=== PATIENT | male | born 1975 | race Caucasian/White ===

== ENCOUNTER 2016-07-12 18:22 | Emergency (ER) | payer SELFPAY ==
[~2016-07-12] VITALS: Ht 180.3 cm; Wt 70.3 kg
[2016-07-12] MEDS ORDERED: IV NORMAL SALINE 1000ML BAG 1,000 ML IV SCH (18:48)
[2016-07-12 19:07] LABS: BASO # 0.1 x10^3/uL (0.0-0.2); BASO % 1 % (0-3); EOS % 1 % (0-3); HEMATOCRIT 45.6 % (39.0-53.0); HEMOGLOBIN 15.3 g/dL (13.0-17.5); LYMPH # 1.8 x10^3/uL (1.0-4.8); LYMPH % 30 % (24-48); MEAN CORPUSCULAR HEMOGLOBIN 33 pg (25-35); MEAN CORPUSCULAR HGB CONC 34 g/dL (31-37); MEAN CORPUSCULAR VOLUME 98 fL (79-100); MONO % 11 % (0-9); NEUT % 56 % (31-73); PLATELET COUNT 208 x10^3/uL (140-400); RED BLOOD COUNT 4.66 x10^6/uL (4.30-5.70); RED CELL DISTRIBUTION WIDTH 14.3 % (11.5-14.5)
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
[2016-07-12] MEDS ORDERED: IOHEXOL 300 MG/ML 75 ML VIAL IV ONE (19:15)
[2016-07-12] MEDS ORDERED: CONTRAST GIVEN MC PRN (19:15)
[2016-07-12 19:16] LABS: PROTHROMBIN TIME PATIENT 12.5 SEC (11.7-14.0)
[2016-07-12 19:26] VITALS: BP 101/65
[2016-07-12 19:28] LABS: CALCIUM 8.5 mg/dL (8.5-10.1); CREATININE 1.1 mg/dL (0.7-1.3); GFR 74.5; POTASSIUM 4.1 mmol/L (3.5-5.1)
[2016-07-12] MEDS ORDERED: ASPIRIN CHEWABLE 81 MG TABLET. PO ONE (19:30)
[2016-07-12 19:32] LABS: BILIRUBIN,URINE NEGATIVE (NEG); GLUCOSE,URINE 250 mg/dL (NEG); NITRITE,URINE NEGATIVE (NEG); PH,URINE 5.5; PROTEIN,URINE NEGATIVE (NEG-TRACE); UROBILINOGEN,URINE 0.2 mg/dL (0.2 mg/dL)
[2016-07-12 19:32] LABS: ALBUMIN 3.4 g/dL (3.4-5.0); TOTAL BILIRUBIN 0.3 mg/dL (0.2-1.0); TOTAL PROTEIN 6.9 g/dL (6.4-8.2)
[2016-07-12 19:33] LABS: CKMB MASS 2.5 ng/mL (0.0-3.6)
[2016-07-12 19:38] LABS: BARBITURATES NEG (NEG); BENZODIAZEPINES NEG (NEG); CANNABINOIDS POS (NEG); COCAINE POS (NEG); METHADONE NEG (NEG); OPIATES NEG (NEG); PHENCYCLIDINE NEG (NEG)
[2016-07-12 19:46] LABS: BACTERIA,URINE 0 /HPF (0-FEW); RBC,URINE 0 /HPF (0-2)
--- NOTE | 2016-07-12 20:45 | RAD ---
Exam performed: CT scan of the abdomen and pelvis with contrast Clinical Indication: Right upper quadrant pain 30 minutes prior to admission. Date of Service: 07/12/2016. COMPARISON: Available Technique: Contiguous helical acquisitions are obtained from the lung bases to the pelvis during intravenous administration of [75 mL of Isovue-320]. In addition oral contrast was also given. Sagittal and coronal reformatted images were obtained and reviewed. CT abdomen findings: The lung bases appear essentially clear. the visualized heart is normal. Partially calcified nodule in the left lung base. The liver, spleen ,gall bladder and pancreas appears unremarkable. Tiny cyst in the left hepatic lobe. Both adrenal glands and bilateral kidneys appear normal with symmetric excretion of contrast via both kidneys. The small bowel loops appear nondilated and unremarkable. Extensive stool throughout the colon including the right colon. There is no retroperitoneal lymphadenopathy or mass lesions. Appendix is not identified. No obvious stranding is seen in the pericecal region. CT pelvis findings: The pelvic bowel loops are nondilated and unremarkable. The urinary bladder is well distended and normal . Prostate gland, seminal vesicles and bladder appear normal. Interrogation of bone windows demonstrates no obvious bony abnormality. Sagittal and coronal reformatted images were obtained and reviewed which demonstrate no additional findings. Impression abdomen and pelvis : 1. Extensive scattered stool throughout the colon. Correlate clinically for constipation. 2. Appendix is not identified. PQRS Compliance Statement: One or more of the following individualized dose reduction techniques were utilized for this examination: 1. Automated exposure control 2. Adjustment of the mA and/or kV according to patient size 3. Use of iterative reconstruction technique Electronically signed by: Debora Smyth MD (07/12/2016 8:42 PM)
--- NOTE | 2016-07-13 06:42 | EKG ---
[facility] [address] [place] [address] Test Date: 2016-07-12 Test Time: 19:10:01 Pat Name: LAYA ONOFRE Department: Room: Gender: M [employer]room Sales Consultant: : 1975 Requested By: AGUSTIN JEAN Order Number: [id number] Reading MD: Radha Mae Measurements Intervals [place] Rate: 67 P: 51 OR: 154 QRS: 87 QRSD: 86 T: 64 QT: 368 QTc: 391 Interpretive Statements SINUS RHYTHM NO SPECIFIC ECG ABNORMALITIES RI6.01 Compared to ECG 12/03/2015 20:50:09 No significant changes Electronically Signed On 07-16-2016 18:27:11 CDT by Radha Mae
--- NOTE | 2016-07-13 08:19 | RAD ---
Indication neck pain. A single view of the chest was obtained. No prior imaging of the chest is available. The heart and pulmonary vessels appear normal. The mediastinum has a normal appearance. The lungs are clear of acute infiltrates. There are occasional calcified granulomas in the lungs. There is no pleural fluid or pneumothorax. The visualized bony structures appear grossly intact. IMPRESSION: No acute or focal process is seen in the chest
== END 2016-07-12 20:24 | disposition left against medical advice (07) ==
LOC: ER 18:22
DX: R10.11 Right upper quadrant pain (principal); M54.2 Cervicalgia; F19.10 Other psychoactive substance abuse, uncomplicated; R94.31 Abnormal electrocardiogram [ECG] [EKG]; F31.9 Bipolar disorder, unspecified; F90.9 Attention-deficit hyperactivity disorder, unspecified type; F12.10 Cannabis abuse, uncomplicated; F14.10 Cocaine abuse, uncomplicated; F15.10 Other stimulant abuse, uncomplicated; Z90.49 Acquired absence of other specified parts of digestive tract; Z88.0 Allergy status to penicillin; Z88.5 Allergy status to narcotic agent
CPT/HCPCS: 36415; 71010; 74177; 80053; 80305; 80320; 81001; 82550; 82553; 83605; 83690; 83735; 83874; 84443; 84484; 85027; 85610; 93005; 93010; 96360; 99285; J7030; Q9967; G0480; G0481

== ENCOUNTER 2017-03-17 17:55 | Emergency (ER) | payer SELFPAY ==
[2017-03-17] MEDS: BENZONATATE 100 MG CAPSULE. PO ×2 (19:18)
[2017-03-17] MEDS: predniSONE 20 MG TABLET PO ×2 (19:18)
[2017-03-17] MEDS: IPRATRPIUM/ALBUTEROL 0.5/2.5MG 3 ML NEBU. NEB ×2 (19:25)
== END 2017-03-17 19:55 | disposition home or self-care (01) ==
LOC: ER 17:55
DX: J20.9 Acute bronchitis, unspecified (principal); F17.200 Nicotine dependence, unspecified, uncomplicated; F31.9 Bipolar disorder, unspecified; F90.9 Attention-deficit hyperactivity disorder, unspecified type; F14.10 Cocaine abuse, uncomplicated; F12.10 Cannabis abuse, uncomplicated; F15.10 Other stimulant abuse, uncomplicated; Z88.5 Allergy status to narcotic agent; Z88.0 Allergy status to penicillin
CPT/HCPCS: 71046; 94640; 99284-25; J7512; J7620

== ENCOUNTER 2020-07-01 06:57 | Emergency (ER) | payer SELFPAY ==
[2017-03-17 18:17] VITALS: BP 132/76
[~2020-07-01 06:57] MED LIST: BENZ100C PO; PRED50TA PO; VENTOLIN HFA18 GM INH
== END 2020-07-01 07:00 | disposition left against medical advice (07) ==
LOC: ER 06:57
DX: F10.239 Alcohol dependence with withdrawal, unspecified (principal); Z53.21 Procedure and treatment not carried out due to patient leaving prior to being seen by health care provider

== ENCOUNTER 2020-11-24 00:41 | Emergency (ER) | payer SELFPAY ==
[~2020-11-24] VITALS: Ht 175.3 cm; Wt 72.7 kg
[2020-11-24 00:41] VITALS: BP 125/83
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
--- NOTE | 2020-11-24 01:27 | RAD ---
EXAMINATION: XR CHEST 1V CLINICAL HISTORY: Chest pain EXAM DATE/TIME: 11/24/2020 12:57 AM COMPARISON: 03/17/2017 FINDINGS: Lines, Tubes, and Devices: None. Cardiomediastinal Silhouette: Within normal limits. Lungs and Pleura: No evidence of focal airspace consolidation or pleural effusion. Pulmonary vasculat ure unremarkable. Bones and Soft Tissues: No acute osseous abnormality. IMPRESSION: No evidence of acute cardiopulmonary abnormality. Electronically signed by: Javed Carrera DO (11/24/2020 1:25 AM) CHAVA
== END 2020-11-24 01:14 | disposition left against medical advice (07) ==
LOC: ER 00:41
DX: F15.129 Other stimulant abuse with intoxication, unspecified (principal); F31.9 Bipolar disorder, unspecified; F17.200 Nicotine dependence, unspecified, uncomplicated; Z88.0 Allergy status to penicillin; Z88.8 Allergy status to other drugs, medicaments and biological substances
CPT/HCPCS: 71045; 99283; 99285-25

== ENCOUNTER 2021-01-16 04:36 | Emergency (ER) | payer MEDICAID ==
[~2021-01-16] VITALS: Ht 177.8 cm; Wt 72.7 kg
[2021-01-16 04:50] VITALS: BP 120/69
[2021-01-16] MEDS ORDERED: DEXAMETHASONE SOD PHOS 20 MG/5 ML VIAL. PO ONE (05:30)
--- NOTE | 2021-01-16 05:41 | ED.ADGEN ---
Past Medical History Past Medical History: Bipolar Additional Past Medical Histor: CERVICAL NECK INJURY Past Surgical History: Appendectomy Additional Past Surgical Histo: CERVICAL NECK SURGURY "C5" Smoking Status: Current Every Day Smoker Alcohol Use: Heavy Drug Use: Cocaine, Marijuana, Methamphetamine General Adult EDM: Chief Complaint: NECK PAIN HPI: HPI: Patient is a 45 year old male coming in for throat pain and tenderness and swelling to his right throat for the past 2 days. Patient denies any fever cough. Denies any dental pain or injury. States he is still a swallow issue is painful. Review of Systems: Review of Systems: All other systems within normal limits except for as noted in the HPI Current Medications: Current Medications Medications (Trade) Dose Ordered Sig/[facility] Start Time Stop Time Status Last Admin Dose Admin Dexamethasone Sodium Phosphate (Decadron) 10 mg 1X ONCE 01/16/21 05:30 01/16/21 05:33 DC Ketorolac Tromethamine (Toradol Im) 60 mg 1X ONCE 01/16/21 05:45 01/16/21 05:48 DC Allergies: Allergies: Allergies Coded Allergies Type Severity Reaction Last Updated Verified Opioids - Morphine Analogues Allergy Severe Anaphylaxis 09/10/15 Yes Penicillins Allergy Intermediate Hives 09/10/15 Yes Physical Exam: PE: Constitutional: Well developed, well nourished, no acute distress, non-toxic appearance. [] HENT: Normocephalic, atraumatic, bilateral external ears normal, nose normal. Erythema of posterior pharynx and tonsils, mild swelling of tonsils with exudates. No uvular shift, no trismus [] Eyes: PERRLA, conjunctiva normal, no discharge. [] Neck: No rigidity, supple, no stridor. Right-sided anterior cervical lymphadenopathy [] Cardiovascular: Regular rate and rhythm, brisk cap refill [] Lungs & Thorax: Non labored symmetric respirations, no tachypnea or respiratory distress [] Abdomen: Soft, nondistended. Skin: Warm, dry, no erythema, no rash. [] Back: Unremarkable Extremities: No deformities, range of motion grossly intact, no lower extremity edema [] Neurologic: Alert and oriented X 3, no focal deficits noted. [] Psychologic: Affect normal, judgement normal, mood normal. [] Current Patient Data: Vital Signs: Vital Signs Date Time Temp Pulse Resp B/P (MAP) Pulse Ox O2 Delivery O2 Flow Rate FiO2 01/16/21 04:50 99.1 98 20 120/69 (86) 98 Room Air 99.1 EKG: EKG: [] Heart Score: C/O Chest Pain: No Risk Factors: Risk Factors: DM, Current or recent (<one month) smoker, HTN, HLP, family history of CAD, obesity. Risk Scores: Score 0 - 3: 2.5% MACE over next 6 weeks - Discharge Home Score 4 - 6: 20.3% MACE over next 6 weeks - Admit for Clinical Observation Score 7 - 10: 72.7% MACE over next 6 weeks - Early Invasive Strategies Radiology/Procedures: Radiology/Procedures: [] Course & Med Decision Making: Course & Med Decision Making Patient throat is very dry and was difficult to get sample, initial rapid strep negative but due to patient's symptoms and Centor criteria we will go ahead and empirically treat for strep pharyngitis pending culture swab Dragon Disclaimer: Prachi Disclaimer: This electronic medical record was generated, in whole or in part, using a voice recognition dictation system. Departure Departure Impression: Primary Impression: Strep pharyngitis Disposition: HOME / SELF CARE / HOMELESS Condition: STABLE Referrals: NO PCP (PCP) Patient Instructions: Viral and Bacterial Pharyngitis, [id number] Scripts Azithromycin (ZITHROMAX) 250 Mg Tablet 1 PKG PO UD for antibiotic, #6 TAB Prov: SHAN CHÁVEZ MD 01/16/21 SHAN CHÁVEZ MD Jan 16, 2021 05:40
[2021-01-16] MEDS ORDERED: KETOROLAC 60 MG/2 ML VIAL. IM ONE (05:45)
[2021-01-16] MEDS ORDERED: AZIT250T PO (05:51)
== END 2021-01-16 06:03 | disposition home or self-care (01) ==
LOC: ER 04:36
DX: J02.0 Streptococcal pharyngitis (principal); B95.5 Unspecified streptococcus as the cause of diseases classified elsewhere; F31.9 Bipolar disorder, unspecified; F17.200 Nicotine dependence, unspecified, uncomplicated; F10.20 Alcohol dependence, uncomplicated; Y90.9 Presence of alcohol in blood, level not specified; Z88.0 Allergy status to penicillin; Z88.5 Allergy status to narcotic agent
CPT/HCPCS: 87070; 87147; 87880; 96372; 99283; J1100; J1885

== ENCOUNTER 2021-04-10 10:07 | Emergency (ER) | payer MEDICAID ==
[~2021-04-10] VITALS: Ht 177.8 cm; Wt 75.0 kg
[~2021-04-10 10:07] MED LIST changes: +AZIT250T PO
--- NOTE | 2021-04-10 10:50 | PHYS DOC ---
Past Medical History Past Medical History: Bipolar Additional Past Medical Histor: CERVICAL NECK INJURY (ZOHREH NAQVISARAVANAN Batres [employer] MACHINE OPERATOR) Past Surgical History: Appendectomy Additional Past Surgical Histo: CERVICAL NECK SURGURY "C5" (DANII NAQVIJoselito Batres [employer] MACHINE OPERATOR) Smoking Status: Current Every Day Smoker Alcohol Use: None Drug Use: Cocaine, Marijuana, Methamphetamine (ZOHREH NAQVINNA M [employer] MACHINE OPERATOR) General Adult EDM: Chief Complaint: HALLUCINATIONS AUDIBLE/VISUAL HPI: HPI: Patient is a 45 year old male who presents with hallucinations and paranoia after using meth, bath salts, marijuana use. He states he is not in a good mental state. He states he is not suicidal or homicidal. He states he is " afraid for his life in the ED". He states " please do not shoot me or kill me". He states " I do not want to hurt anybody and I will not hurt anybody". He then takes a large pocket knife out of his pant pocket and states " see I am not going to hurt you". Patient has a history of bipolar, meth use, polysubstance, smoking, cervical neck injury with surgery, appendectomy. (DANII NAQVIJoselito Batres [employer] MACHINE OPERATOR) Review of Systems: Review of Systems: Constitutional: Denies fever or chills. [] Eyes: Denies change in visual acuity. [] HENT: Denies nasal congestion or sore throat. [] Respiratory: Denies cough or shortness of breath. [] Cardiovascular: Denies chest pain or edema. [] GI: Denies abdominal pain, nausea, vomiting, bloody stools or diarrhea. [] : Denies dysuria. [] Musculoskeletal: Denies back pain or joint pain. [] Integument: Denies rash. [] Neurologic: Denies headache, focal weakness or sensory changes. [] Endocrine: Denies polyuria or polydipsia. [] Lymphatic: Denies swollen glands. [] Psychiatric: Denies depression or +anxiety. + Paranoia. + Hallucinations [] (KIKE NAQVI [employer] MACHINE OPERATOR) Heart Score: C/O Chest Pain: No (KIKE NAQVI [employer] MACHINE OPERATOR) Current Medications: Current Medications Medications (Trade) Dose Ordered Sig/Giacomo Start Time Stop Time Status Last Admin Dose Admin Olanzapine (ZyPREXA ZYDIS) 10 mg 1X ONCE 3/5/22 10:45 04/10/21 10:46 (KIKE NAQVI APRN) Allergies: Allergies: Allergies Coded Allergies Type Severity Reaction Last Updated Verified Opioids - Morphine Analogues Allergy Severe Anaphylaxis 09/10/15 Yes Penicillins Allergy Intermediate Hives 09/10/15 Yes (KIKE NAQVI APRN) Physical Exam: PE: Constitutional: Well developed, well nourished, no acute distress, non-toxic appearance. Disheveled [] HENT: Normocephalic, atraumatic, bilateral external ears normal, oropharynx moist, no oral exudates, nose normal. [] Eyes: PERRLA, EOMI, conjunctiva normal, no discharge. [] Neck: Normal range of motion, no tenderness, supple, no stridor. [] Cardiovascular:Heart rate regular rhythm, no murmur [] Lungs & Thorax: Bilateral breath sounds clear to auscultation [] Abdomen: Bowel sounds normal, soft, no tenderness, no masses, no pulsatile masses. [] Skin: Warm, dry, no erythema, no rash. [] Back: No tenderness, no CVA tenderness. [] Extremities: No tenderness, no cyanosis, no clubbing, ROM intact, no edema. [] Neurologic: Alert and oriented X 3, normal motor function, normal sensory function, no focal deficits noted. [] Psychologic: Affect normal, judgement normal, mood normal. Anxious. Auditory hallucinations. Paranoia. [] (KIKE NAQVI APRN) EKG: EKG: [] (KIKE NAQVI APRN) Radiology/Procedures: Radiology/Procedures: [] (KIKE NAQVI APRN) Course & Med Decision Making: Course & Med Decision Making Pertinent Labs and Imaging studies reviewed. (See chart for details) See HPI. Alert and oriented x4. Very paranoid. Patient thinks that we are going to try to hurt him or shoot him here. Patient states he hears people threatening him. He states he is supposed to be on medications for his bipolar but is not taking any. Patient is very disheveled and appears homeless. Patient is frightened that the O2 monitor sensor is going to shock him. Very anxious and pacing. I spoke with [facility] Strong and she states to call her after blood work is done. 1500: Awaiting ADRIAN Strong arrival to evaluate patient. He is stable. He received Zyprexa 10 mg dissolving tablet and 2 mg Ativan. Patient is given a meal and a beverage. Patient has settled down and is actually sitting in bed. He is occasionally talking to things that are not in the room. He is rapid Covid negative. He is tolerating fluids. Blood work is unremarkable. Patient is stable and medically cleared. He is positive for cocaine, amphetamines and marijuana. 1645: Awaiting ADRIAN Strong arrival. Patient is up pacing the room again but is calm and cooperative. Patient has been ordered another 2mg Ativan and a Nicotine patch. 2040: Patient is signed over to Vivienne FIELD 0917: Patient is alert and oriented. He is up and walking and is not nearly as paranoid as yesterday. He slept all night per night staff. Carley with [facility] is coming in to speak with the patient and hopefully get him placed. Patient sister is here visiting with the patient at this time. 1000: Carley CAMPBELL is here to speak with patient. Patient remains alert and oriented. He is still slightly paranoid and irritable the patient admits that he has not been taking his medications. He does have schizophrenia. Patient does not want inpatient psychiatric help. He does have a real estate agency principal at [facility] and he was Mildred. He will follow up with her. Carley is also letting Mildred know that the patient has been here and she is going to reach out to him. Patient does have his medications with him here that we are going to give him. Patient took his buspirone only. Patient remains nonsuicidal and not homicidal. Patient knows that he needs help and he knows that the drugs that he is on are worsening his symptoms of the schizophrenia. Patient states he has a friend that is coming to pick him up and he has a safe place to go. [] (KIKE NAQVI APRN) Course & Med Decision Making 2037 assumed patient's care, awaiting psych evaluation and placement. Patient is currently sleeping. 04/11/[address] Leon patient still sleeping. (VIVIENNE JEAN APRN) Course & Med Decision Making PAT team was in ER to evaluate patient. Patient was drowsy and could not be evaluated. Patient signed out to Dr Nelson at shift change 0600hrs. Disposition pending psychiatric assessment. Patients Care and treatment plan provided by ER Nurse Practitioner. I was a vailable for consult. Patient's chart reviewed. (LYNN LEON DO) Prachi Disclaimer: Prachi Disclaimer: This electronic medical record was generated, in whole or in part, using a voice recognition dictation system. (KIKE NAQVI APRN) Departure Departure Impression: Primary Impression: Polysubstance abuse Additional Impressions: Paranoia Hallucinations Disposition: HOME / SELF CARE / HOMELESS Condition: STABLE Referrals: NO PCP (PCP) Patient Instructions: Hallucinations and Delusions, Paranoia, Polysubstance A buse, Schizophrenia Additional Instructions: Make sure you begin taking your medications. Please stop using drugs as you know this is only worsening your symptoms. Follow-up with your real estate agency principal as soon as possible. Return for worsening symptoms or suicidal or homicidal thoughts. KIKE NAQVI APRN Apr 10, 2021 10:49 VIVIENNE JEAN APRN Apr 10, 2021 22:07 LYNN LEON DO Apr 11, 2021 05:35
[2021-04-10] MEDS ORDERED: ZIPRASIDONE IM 20 MG VIAL. IM ONE (11:45)
[2021-04-10 12:42] LABS: BASO # 0.1 x10^3/uL (0.0-0.2); BASO % 1 % (0-3); EOS # 0.1 x10^3/uL (0.0-0.7); EOS % 1 % (0-3); HEMATOCRIT 45.4 % (39.0-53.0); HEMOGLOBIN 15.7 g/dL (13.0-17.5); LYMPH # 1.4 x10^3/uL (1.0-4.8); LYMPH % 16 % (24-48); MEAN CORPUSCULAR HEMOGLOBIN 32 pg (25-35); MEAN CORPUSCULAR HGB CONC 35 g/dL (31-37); MEAN CORPUSCULAR VOLUME 93 fL (79-100); MONO # 0.9 x10^3/uL (0.0-1.1); MONO % 11 % (0-9); NEUT # 5.9 x10^3/uL (1.8-7.7); NEUT % 71 % (31-73); PLATELET COUNT 312 x10^3/uL (140-400); RED BLOOD COUNT 4.91 x10^6/uL (4.30-5.70); RED CELL DISTRIBUTION WIDTH 14.5 % (11.5-14.5); WHITE BLOOD COUNT 8.2 x10^3/uL (4.0-11.0)
[2021-04-10 13:02] LABS: CALCIUM 9.7 mg/dL (8.5-10.1); CREATININE 1.3 mg/dL (0.7-1.3)
[2021-04-10 13:07] LABS: ALBUMIN 4.6 g/dL (3.4-5.0); ALBUMIN/GLOBULIN RATIO 1.1 (1.0-1.7); TOTAL BILIRUBIN 0.9 mg/dL (0.2-1.0); TOTAL PROTEIN 8.9 g/dL (6.4-8.2)
[2021-04-10 13:13] LABS: ACETAMIN < 2 mcg/ml (10-30); ETHANOL < 10 mg/dL (0-10); SALIC 1.7 mg/dL (2.8-20.0)
[2021-04-10 13:14] LABS: AMPHETAMINE/METHAMPHETAMINE POS (NEG); BARBITURATES NEG (NEG); BENZODIAZEPINES NEG (NEG); CANNABINOIDS POS (NEG); COCAINE POS (NEG); METHADONE NEG (NEG); OPIATES NEG (NEG); PHENCYCLIDINE NEG (NEG)
[2021-04-10] MEDS ORDERED: EPINEPHrine SYRINGE 1 MG/10 ML SYRINGE. ONE (13:48)
[2021-04-10 15:13] LABS: BILIRUBIN,URINE SMALL (NEG); CLARITY,URINE CLEAR; COLOR,URINE YELLOW; NITRITE,URINE NEGATIVE (NEG); PROTEIN,URINE NEGATIVE (NEG-TRACE); UROBILINOGEN,URINE 0.2 mg/dL (0.2 mg/dL)
[2021-04-10 15:15] LABS: BACTERIA,URINE 0 /HPF (0-FEW); HYALINE CASTS, URINE OCCASIONAL /HPF; RBC,URINE 0 /HPF (0-2); WBC,URINE OCC /HPF (0-4)
[2021-04-10] MEDS ORDERED: NICOTINE 21MG PATCH. TD ONE (16:30)
[2021-04-11 11:32] VITALS: BP 128/82
--- NOTE | 2021-04-13 11:31 | NUR ---
IP: Attempted to contact pt concerning covid results. Phone number provided is for mother. She gave his cell number [phone]. Attempted to call, no answer, left a voicemail to return the call.
== END 2021-04-11 11:38 | disposition home or self-care (01) ==
LOC: ER 10:07
DX: R44.0 Auditory hallucinations (principal); R44.1 Visual hallucinations; F19.10 Other psychoactive substance abuse, uncomplicated; Z20.822 Contact with and (suspected) exposure to COVID-19; F31.9 Bipolar disorder, unspecified; F17.200 Nicotine dependence, unspecified, uncomplicated; Z88.0 Allergy status to penicillin; Z88.8 Allergy status to other drugs, medicaments and biological substances
CPT/HCPCS: 36415; 80053; 80307; 80329; 81001; 82550; 85025; 87426; 99285; C9803; G0480; U0003